=== PATIENT | female | born 1985 | race Caucasian/White ===

== ENCOUNTER 2017-01-18 13:21 | Inpatient (IN) ==
[2017-01-18] MEDS ORDERED: METHYLERGONOVINE 0.2 MG/ML INJECTION IM PRN (14:28)
[2017-01-18] MEDS ORDERED: LIDOCAINE 1% (10mg/ml) 2mL INJ PF SDV ID PRN (14:28)
[2017-01-18] MEDS ORDERED: CARBOPROST 250 MCG/ML INJECTION IM PRN (14:28)
[2017-01-18] MEDS ORDERED: CALCIUM CARBONATE Chewable 500mg TABLET PO PRN (14:28)
[2017-01-18] MEDS ORDERED: ACETAMINOPHEN 500 MG TABLET PO PRN (14:28)
[2017-01-18] MEDS ORDERED: MAG-AL + SIM ORAL LIQUID 30ml PO PRN (14:28)
[2017-01-18] MEDS: LR 1,000 ML IV PRN ×3 (14:36→22:32)
[2017-01-18 14:50] VITALS: BMI 29.0
[2017-01-18] MEDS ORDERED: NALOXONE 0.4 MG/ML INJECTION IVP PRN (15:47)
[2017-01-18] MEDS ORDERED: ROPIVACAINE 1% 10MG/ML INJ 200 MG, SUFentanil 50 MCG in NS 100 ML EPI PRN (15:47)
[2017-01-18] MEDS ORDERED: DiphenhydrAMINE 50 MG/ML INJECTION IVP PRN (15:47)
--- NOTE | 2017-01-18 15:47 | Anesthesia Preoperative Report ---
Anesthesia Epidural/Spinal Rec - Date and Time Date: 01/18/17 Preoperative Diagnosis: labor, Procedure: Labor Epidural Plan: Epidural - Vital Signs Vital Signs: Temperature 97.3 F 01/18/17 14:31 Pulse Rate 112 H 01/18/17 14:31 Respiratory Rate 20 01/18/17 14:31 Blood Pressure 126/75 01/18/17 14:31 Pulse Oximetry 98 01/18/17 14:31 Oxygen Delivery Method Room Air NPO since: 09 /Para: P:0 Heart Rate: 120 - Medictaions & Allergies Inpatient Medications: Current Medications Acetaminophen (Tylenol) 500 - 1,000 mg PO Q4H PRN PRN Reason: Pain Al Hydroxide/Mg Hydroxide (Maalox Plus) 30 ml PO Q3H PRN PRN Reason: Indigestion Calcium Carbonate (Tums) 500 - 1,000 mg PO Q2H PRN PRN Reason: Indigestion Carboprost Tromethamine (Hemabate) 250 mcg IM O PRN PRN Reason: .Downtime Lactated Ringer's (Lactated Ringers) 1,000 mls @ 1,000 mls/hr IV .Q1H PRN PRN Reason: as directed Last Admin: 01/18/17 14:36 Dose: 1,000 mls/hr Lidocaine HCl (Xylocaine-Mpf 1% Vial) 0.2 mg ID O PRN PRN Reason: IV Start Methylergonovine Maleate (Methergine) 0.2 mg IM O PRN Misoprostol (Cytotec) 800 mcg LA ONCE PRN Allergies/Adverse Reactions: Allergies Allergy/AdvReac Type Severity Reaction Status Date / Time Sulfa (Sulfonamide Allergy Verified 01/18/17 15:38 Antibiotics) - Home Medications Home Medications: Home Medications Medication Instructions Recorded Confirmed Type Vitamins 01/02/17 History - Surgical History HEENT Surgeries: Reports: Tonsillectomy Anesthesia Reactions: None - Social History Substance Use Type: does not use Alcohol Intake Frequency: does not drink - Pertinent Findings Lab Data: CBC and BMP 01/18/17 14:38 EKG Rhythm: Normal Sinus Rhythm - Physical Exam Respiratory Exam: lungs clear, bilateral breath sounds equal Cardiovascular Exam: regular rate and rhythm, no murmur - Airway Assessment Mallampati Score: II TMD: 3 Fingerbreadths Neck Extension: good Overall Assessment: no airway concerns - ASA ASA Score: 2 - Discussion Discussion: Discussed risks/options/alternatives of anesthesia and questions answered. Patient consents. Nursing pain assessment noted. Attestation Statement: Prior to the delivery of any anesthetic medication, I examined the patient, developed the plan, obtained the patient's consent and discussed the risk and benefits of the procedure with the patient/guardian.
[2017-01-18] MEDS ORDERED: D5LR 1,000 ML IV SCH (15:53)
[2017-01-18] MEDS: ONDANSETRON 4 MG/2 ML INJECTION IVP PRN (21:16)
[2017-01-19] MEDS: LR 1,000 ML IV PRN (00:25)
[2017-01-19] MEDS: ONDANSETRON 4 MG/2 ML INJECTION IVP PRN (01:41)
[2017-01-19] MEDS ORDERED: OXYTOCIN DRIP 30 UNIT/500 ML ML IV SCH (03:19)
[2017-01-19] MEDS ORDERED: MAG-AL + SIM ORAL LIQUID 30ml PO PRN (03:19)
[2017-01-19] MEDS ORDERED: HYDROCORTISONE 2.5% CREAM 30gm RECTALLY PRN (03:19)
[2017-01-19] MEDS ORDERED: DiphenhydrAMINE 25 MG CAPSULE PO PRN (03:19)
[2017-01-19] MEDS ORDERED: ACETAMINOPHEN 500 MG TABLET PO PRN (03:19)
[2017-01-19] MEDS ORDERED: SALINE FLUSH 10ml SYRINGE IVF PRN (03:19)
[2017-01-19] MEDS ORDERED: CALCIUM CARBONATE Chewable 500mg TABLET PO PRN (03:19)
[2017-01-19] MEDS ORDERED: OXYTOCIN DRIP 30 UNIT/500 ML ML IV PRN (03:19)
[2017-01-19] MEDS: IBUPROFEN 800 MG TABLET PO SCH ×3 (03:53→19:06)
[2017-01-19] MEDS: HYDROCODONE/APAP 5mg/325mg TABLET PO PRN ×4 (04:57→21:41)
--- NOTE | 2017-01-19 08:22 | Anesthesia Postoperative Note ---
- Date and Time Date: 01/19/17 Time: 08:35 - Status Patient Participated in Evaluation: Patient Participated in Person Vital Signs: Temperature 97.3 F 01/18/17 14:31 Pulse Rate 112 H 01/18/17 14:31 Respiratory Rate 20 01/18/17 14:31 Blood Pressure 126/75 01/18/17 14:31 Pulse Oximetry 98 01/18/17 14:31 Oxygen Delivery Method Room Air Respiratory Function: Airway Patent Cardiovascular Function: Regular Pulse EKG Rhythm: Normal Sinus Rhythm Mental Status: Alert and Oriented Hydration: IV Infusing Complications During Recover: None Apparent - Follow-Up Instructions Instructions: Per Surgeon
--- NOTE | 2017-01-19 08:41 | OB/GYN Progress Note ---
OB-PP Progress Note - General Maternal Group B Strep: Negative Maternal blood type: AB+ Maternal Rubella Status: Immune - Subjective Date: 01/19/17 Lochia: Moderate Pain: contolled Nausea or Vomiting Present: No - Objective Vital Signs: Last Vital Signs Temp 97.3 F 01/18/17 14:31 Pulse 112 H 01/18/17 14:31 Resp 20 01/18/17 14:31 BP 126/75 01/18/17 14:31 Pulse Ox 98 01/18/17 14:31 Urine Output: good General: alert and oriented Abdomen: fundus firm, non-tender Laboratory: Laboratory Results - last 24 hr 01/18/17 14:38 WBC 19.5 H RBC 4.14 Hgb 13.0 Hct 38.9 MCV 94.0 MCH 31.4 MCHC 33.4 RDW Std Deviation 43.7 Plt Count 252 MPV 10.9 - Assessment Assessment: SPLUX - Plan Plan: routine care
[2017-01-19] MEDS: DOCUSATE CALCIUM 240 MG CAPSULE PO SCH (08:56)
[2017-01-19] MEDS: PRENATAL VITAMIN TABLET PO SCH (08:56)
[2017-01-19] MEDS: RANITIDINE 150 MG TABLET PO SCH ×2 (10:00→21:41)
--- NOTE | 2017-01-19 12:33 | Labor and Delivery Note ---
Patient of Dr. Eller. DATE OF DELIVERY 01/19/2017 SUMMARY OF DELIVERY Ms. Mendoza progressed well in first stage of labor. She began to push with excellent effort at the complete and +1 position. She pushed for a little over an hour, delivering the head in the OA position. There was no evidence of nuchal cord. Baby was bulb suctioned. With a further push, baby delivered in total. Baby was then further bulb suctioned and placed on mother's abdomen. After about three minutes, the cord was soft. It was doubly clamped and then cut by the baby's father, Jordan. This is a liveborn male with Apgars of 8, 9, 9. Weight has not yet been obtained as baby is still [id number] contact with mom. After a few moments, the placenta delivered spontaneously intact. It had a normal configuration and a normal-appearing three-vessel cord. There was a left labial laceration that was repaired with a subcuticular style 2-0 Vicryl. It was extended a bit into the left sulcus, and that part was repaired with a running nonlocking 2-0 Vicryl. There were bilateral periurethral lacerations that were superficial and were hemostatic and were therefore not repaired. Total blood loss was approximately 300 mL. At the time of this dictation, mother and baby are doing well. [facility]
[2017-01-20] MEDS: IBUPROFEN 800 MG TABLET PO SCH ×2 (04:59→15:36)
--- NOTE | 2017-01-20 08:13 | OB/GYN Progress Note ---
OB-PP Progress Note - General PPD1 - Subjective Date: 01/20/17 Lochia: Moderate Pain: contolled (using norco 5mg/325mg and Ibuprofen 800mg for pain. ) Voiding: voiding Nausea or Vomiting Present: No - Objective Vital Signs: Last Vital Signs Temp 97.7 F 01/19/17 23:58 Pulse 83 01/19/17 23:58 Resp 16 01/19/17 23:58 BP 129/88 01/19/17 23:58 Pulse Ox 99 01/19/17 23:58 Urine Output: good General: alert and oriented Abdomen: fundus firm Extremities: non-tender Edema: none - Assessment Assessment: - Plan Plan: routine care, discharge home (Plan for dismissal after baby dismissed. Waiting on baby circ. )
[2017-01-20] MEDS: PRENATAL VITAMIN TABLET PO SCH (08:48)
[2017-01-20] MEDS: RANITIDINE 150 MG TABLET PO SCH (08:49)
[2017-01-20] MEDS: DOCUSATE CALCIUM 240 MG CAPSULE PO SCH (08:49)
[2017-01-20] MEDS: HYDROCODONE/APAP 5mg/325mg TABLET PO PRN (13:16)
--- NOTE | 2017-01-20 14:58 | Discharge Instructions ---
Discharge Plan - Med Rec/Dispo [facility] Instructions: [facility] Vaginal Delivery Prescriptions: New Ibuprofen [Motrin] 800 mg PO Q8H #30 tablet Hydrocodone/APAP 5/325 [Lane 5/325] 1 - 2 tab PO Q4H PRN #30 tablet PRN Reason: Pain Continue Vitamins - Disposition 01 Discharged Home, Self-Care
[2017-01-20 15:52] VITALS: BP 129/91; PULSE 93; RESP 18; TEMP 97.4; O2SAT 99
== END 2017-01-20 17:45 | disposition home or self-care (01) | DRG 775 ==
LOC: OBOBS 13:21 → MC 13:22
PROVIDERS: ADMIT Obstetrics & Gynecology; ATTEND Obstetrics & Gynecology